=== PATIENT | male | born 1975 | race Caucasian/White ===

== ENCOUNTER 2019-01-15 05:58 | Day surgery (SDC) | payer BC, MEDICAID ==
[2019-01-13 15:26] LABS: Urine WBC None Seen /hpf (0 - 3)
[2019-01-13 15:31] LABS: Basophils # (auto) 0.1 uL; Basophils % (auto) 0.9 % (0.0-2.0); Eosinophils # (auto) 0.1 uL; Eosinophils % (auto) 0.9 % (0.0-7.0); Hematocrit 44.3 % (41.0-53.0); Hemoglobin 14.9 g/dL (13.5-17.5); Lymphocytes # (auto) 3.1 uL; Lymphocytes % (auto) 33.5 % (10.0-50.0); Mean Corpuscular Hemoglobin 30.9 pg (28.0-32.0); Mean Corpuscular Hgb Conc. 33.7 g/dL (32.0-36.0); Mean Corpuscular Volume 91.7 fL (80.0-100.0); Monocytes # (auto) 0.6 uL; Monocytes % (auto) 6.6 % (0.0-12.0); Neutrophils # (auto) 5.4 uL; Neutrophils % (auto) 58.1 % (37.0-80.0); Platelet Count (auto) 264 10^3/uL (140-450); Red Blood Cells 4.83 10^6/uL (4.5-5.90); Red Cell Distribution Width 12.8 % (11.8-14.3); White Blood Cell 9.3 10^3/uL (4.4-10.8)
[2019-01-13 15:43] LABS: INR 0.93 (0.9-1.15); Partial Thromboplastin Time 27.6 sec (23.64-32.05)
[2019-01-13 16:06] LABS: Potassium 3.4 mmol/L (3.5-5.1)
[2019-01-13 16:15] LABS: Urine Bacteria NONE SEEN /hpf (None Seen); Urine Blood Negative /uL (Negative); Urine Mucus FEW (None Seen)
[2019-01-13 16:16] LABS: Albumin 4.1 g/dL (3.4-5.0); BUN/Creatinine Ratio 14.7; Bilirubin, Total 0.7 mg/dL (0.2-1.0); Total Protein 7.6 g/dL (6.4-8.2)
[~2019-01-15] VITALS: Ht 182.9 cm; Wt 113.4 kg
[2019-01-15] MEDS ORDERED: ceFAZolin 1GM/50ML 50 ML IV ONE (06:59)
[2019-01-15] MEDS ORDERED: SUCCINYLCHOLINE CHLORIDE 20 MG/ML 10ML VIAL IV ONE (07:04)
[2019-01-15] MEDS ORDERED: LIDOCAINE 1% HCL (LOCAL ANESTH.) INJ 20ML MDV ONE ×2 (07:04→07:27)
[2019-01-15] MEDS ORDERED: MIDAZOLAM HCL 1MG/1ML-2 ML VIAL ONE ×2 (07:08→07:16)
[2019-01-15] MEDS ORDERED: PROPOFOL 10 MG/ML 20 ML IV ONE (07:09)
[2019-01-15] MEDS ORDERED: ROPIVACAINE 0.5% (5MG/ML) 20ML AMPULE IJ ONE (07:10)
[2019-01-15] MEDS ORDERED: GLYCOPYRROLATE 0.2 MG/ML 1ML VIAL ONE (07:10)
[2019-01-15] MEDS ORDERED: diphenhdrAMINE HCL 50 MG/1 ML VL ONE (07:10)
[2019-01-15] MEDS ORDERED: METOCLOPRAMIDE HCL 5MG/ml INJ 2ml VIAL ONE (07:10)
[2019-01-15] MEDS ORDERED: fentaNYL CITRATE 100 MCG/2 ML VL ONE (07:17)
[2019-01-15] MEDS ORDERED: HYDROmorphone HCL 2 MG/ML VL IV PRN ×2 (07:30)
[2019-01-15] MEDS ORDERED: ALBUTEROL SULF 2.5 MG/0.5ML(0.5%) NEB SOLN NEB ONE (08:45)
[2019-01-15] MEDS ORDERED: LEVALBUTEROL HCL 1.25 MG/3 ML NEB NEB ONE (08:50)
[2019-01-15] MEDS ORDERED: LEVALBUTEROL HCL 1.25 MG/3 ML NEB ONE (09:00)
[2019-01-15 09:44] VITALS: BP 124/72
== END 2019-01-15 09:55 | disposition home or self-care (01) ==
LOC: SUR 05:58
PROVIDERS: ATTEND Podiatrist Foot & Ankle Surgery
DX: D36.13 Benign neoplasm of peripheral nerves and autonomic nervous system of lower limb, including hip (principal); G47.33 Obstructive sleep apnea (adult) (pediatric); E66.9 Obesity, unspecified; Z68.33 Body mass index [BMI] 33.0-33.9, adult
CPT/HCPCS: 15275; 36415; 64788; 80053; 81001; 85025; 85610; 85730; 88304; 88342; 94640; C9354; J0330; J0690; J1200; J2001; J2250; J2704; J2765; J2795; J3010; J7612

== ENCOUNTER 2019-02-12 10:05 | Day surgery (SDC) | payer BC, MEDICAID ==
[2019-02-11 12:37] LABS: Basophils # (auto) 0.1 uL; Eosinophils # (auto) 0.1 uL; Eosinophils % (auto) 0.9 % (0.0-7.0); Hematocrit 48.3 % (41.0-53.0); Hemoglobin 16.2 g/dL (13.5-17.5); Lymphocytes # (auto) 2.3 uL; Mean Corpuscular Hemoglobin 30.7 pg (28.0-32.0); Mean Corpuscular Hgb Conc. 33.5 g/dL (32.0-36.0); Mean Corpuscular Volume 91.8 fL (80.0-100.0); Monocytes # (auto) 0.6 uL; Monocytes % (auto) 8.3 % (0.0-12.0); Neutrophils # (auto) 4.5 uL; Neutrophils % (auto) 59.8 % (37.0-80.0); Nucleated Red Blood Cells % 0.1 %; Platelet Count (auto) 226 10^3/uL (140-450); Red Blood Cells 5.26 10^6/uL (4.5-5.90); Red Cell Distribution Width 13.3 % (11.8-14.3); White Blood Cell 7.5 10^3/uL (4.4-10.8)
[2019-02-11 12:53] LABS: INR 0.94 (0.9-1.15); Partial Thromboplastin Time 27.4 sec (23.64-32.05)
[2019-02-11 13:05] LABS: Potassium 3.9 mmol/L (3.5-5.1)
[2019-02-11 13:13] LABS: Albumin 4.2 g/dL (3.4-5.0); BUN/Creatinine Ratio 16.8; Calcium 9.3 mg/dL (8.5-10.1); Total Protein 7.9 g/dL (6.4-8.2)
[~2019-02-12] VITALS: Ht 182.9 cm; Wt 111.1 kg
[2019-02-12] MEDS ORDERED: ceFAZolin 1GM/50ML 50 ML IV ONE (12:51)
[2019-02-12] MEDS ORDERED: ROPIVACAINE 0.5% (5MG/ML) 20ML AMPULE IJ ONE (14:55)
[2019-02-12] MEDS ORDERED: MIDAZOLAM HCL 1MG/1ML-2 ML VIAL ONE (14:56)
[2019-02-12] MEDS ORDERED: fentaNYL CITRATE 100 MCG/2 ML VL ONE (14:56)
[2019-02-12] MEDS ORDERED: PROPOFOL 10 MG/ML 20 ML IV ONE (15:00)
[2019-02-12] MEDS ORDERED: ceFAZolin 1GM VL ONE (15:27)
[2019-02-12 16:10] VITALS: BP 147/77
== END 2019-02-12 16:40 | disposition home or self-care (01) ==
LOC: SUR 10:05
PROVIDERS: ATTEND Podiatrist Foot & Ankle Surgery
DX: L97.518 Non-pressure chronic ulcer of other part of right foot with other specified severity (principal); E66.8 Other obesity; Z68.33 Body mass index [BMI] 33.0-33.9, adult
CPT/HCPCS: 15275; 36415; 80053; 85025; 85610; 85730; C1887; C9354; J0690; J2250; J2704; J2795; J3010; L3260